=== PATIENT | male | born 1990 | race Caucasian/White ===

== ENCOUNTER 2017-06-02 14:14 | Emergency (ER) | payer BC ==
[2017-06-02 14:24] VITALS: BP 139/81
--- NOTE | 2017-06-02 14:51 | EDM.PDOC ---
ED HPI GENERAL MEDICAL PROBLEM - General Chief Complaint: Bite:Animal, Insect Stated Complaint: RIGHT LEG SWOLLEN Time Seen by Provider: 06/02/17 14:24 Source of Information: Reports: Patient History Limitations: Reports: No Limitations - History of Present Illness INITIAL COMMENTS - FREE TEXT/NARRATIVE: The patient presents with right inner thigh redness and swelling. He got stung by a bee yesterday and went to the clinic this morning. He was put on prednisone and benadryl. The redness has gotten worse. 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 He has no fever, chills or cough. Onset: Gradual Duration: Day(s): (Yesterday) Location: Reports: Lower Extremity, Right (Inner thigh) Quality: Reports: Sharp Severity: Moderate Improves with: Reports: None Worsens with: Reports: None Associated Symptoms: Reports: No Other Symptoms Right Knee Pain Score (Numeric/FACES): 6 - Related Data Allergies Allergy/AdvReac Type Severity Reaction Status Date / Time Penicillins Allergy Anaphylactic Verified 06/02/17 14:20 Shock Home Meds: Home Meds Cephalexin 250 mg PO BID 09/11/14 [History] Ondansetron [Zofran ODT] 4 mg PO Q6H PRN #10 tab.dis 12/07/15 [Rx] oxyCODONE HCl/Acetaminophen [Percocet 5-325 mg Tablet] 1 each PO Q6H PRN #10 tablet 12/07/15 [Rx] Sulfamethoxazole/Trimethoprim [Bactrim Ds Tablet] 1 each PO BID #20 tablet 06/02 [Rx] Past Medical History Gastrointestinal History: Reports: None Neurological History: Reports: Concussion 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 Hematologic History: Reports: Other (See Below) Other Hematologic History: Cárdenas syndrome - Past Surgical History GI Surgical History: Reports: Other (See Below) Other GI Surgeries/Procedures: splenectomy Musculoskeletal Surgical History: Reports: Other (See Below) Other Musculoskeletal Surgeries/Procedures:: left knee surgery Social & Family History - Family History Family Medical History: Noncontributory - Tobacco Use Smoking Status *Q: Current Every Day Smoker Years of Tobacco use: 6 Packs/Tins Daily: 1 - Caffeine Use Caffeine Use: Reports: Energy Drinks - Alcohol Use Days Per Week of Alcohol Use: 0 - Recreational Drug Use Recreational Drug Use: No ED ROS GENERAL - Review of Systems Review Of Systems: See Below Constitutional: Reports: No Symptoms HEENT: Reports: No Symptoms Respiratory: Reports: No Symptoms Cardiovascular: Reports: No Symptoms Endocrine: Reports: No Symptoms GI/Abdominal: Reports: No Symptoms : Reports: No Symptoms Musculoskeletal: Reports: Other (Redness and pain after a bee sting) ED EXAM, ANIMAL BITE - Physical Exam Exam: See Below Exam Limited By: No Limitations General Appearance: Alert, No Apparent Distress Ears: Normal External Exam Nose: Normal Inspection Head: Atraumatic, Normocephalic Neck: Normal Inspection Respiratory/Chest: No Respiratory Distress, Lungs Clear, Normal Breath Sounds Cardiovascular: Regular Rate, Rhythm, No Edema, No Murmur GI/Abdominal: Soft, Non-Tender, No Organomegaly, No Mass Back Exam: Normal Inspection Extremities: Other (Erythema and mild edema surrounding a puncture wound to the right inner thigh.) Course - Vital Signs Last Recorded V/S: Last Vital Signs Temp 98.7 F 06/02/17 14:20 Pulse 90 06/02/17 14:20 Resp 18 06/02/17 14:20 BP 139/81 06/02/17 14:20 Pulse Ox 97 06/02/17 14:20 - Re-Assessments/Exams Free Text/Narrative Re-Assessment/Exam: 06/02/17 14:54 I feel he has cellulitis. I will get him on some bactrim. Departure - Departure Time of Disposition: 15:00 Disposition: Home, Self-Care 01 Condition: Good Clinical Impression: Cellulitis Qualifiers: Site of cellulitis: extremity Site of cellulitis of extremity: lower extremity Laterality: right Qualified Code(s): L03.115 - Cellulitis of right lower limb - Discharge Information Prescriptions: Sulfamethoxazole/Trimethoprim [Bactrim Ds Tablet] 1 each PO BID #20 tablet Referrals: Chandrakant Carrillo MD [Primary Care Provider] - 1 Week (If not better) Forms: ED Department Discharge Additional Instructions: Take the keflex like you normally do and take bactrim 2 times per day for 10 days. Put warm compresses on your leg 2 to 3 times per day. There may be more redness for a day but within 48 to 72 hours it should start to look better. If it is not please return or see your doctor.
== END 2017-06-02 15:05 | disposition home or self-care (01) ==
LOC: JD.ED 14:14
DX: L03.115 Cellulitis of right lower limb (principal); F17.210 Nicotine dependence, cigarettes, uncomplicated; Z98.890 Other specified postprocedural states; Z90.81 Acquired absence of spleen; Z88.0 Allergy status to penicillin
CPT/HCPCS: 99283

== ENCOUNTER 2020-08-31 12:35 | Emergency (ER) | payer BC ==
[2020-08-31 12:46] VITALS: BP 140/109; PULSE 99
[2020-08-31] MEDS ORDERED: Sodium Chloride 0.9% 1,000 ML IV ONE (13:30)
--- NOTE | 2020-08-31 13:36 | EDM.PDOC ---
ED HPI GENERAL MEDICAL PROBLEM - General Chief Complaint: Behavioral/Psych Stated Complaint: [facility] Time Seen by Provider: 08/31/20 13:11 Source of Information: Reports: Patient, EMS Notes Reviewed, RN Notes Reviewed History Limitations: Reports: No Limitations - History of Present Illness INITIAL COMMENTS - FREE TEXT/NARRATIVE: Patient is a 30-year-old male who was brought into the ED via the [facility] for the evaluation of his anxiety attack. He notes that he tried a new medication, CBD oil, 2 hours prior to developing the severe anxiety, he states he felt like his heart was beating out of his chest, he felt very shaky and tingly, and he has never used this substance before. He does have a history of anxiety, and is on Lexapro and Viberzi for management. EKG was taken by ambulance staff, did show sinus tachycardia, when I go in to evaluate the patient, it is normal sinus rhythm at 86bpm on the vehicle monitor technician. Patient did get 2 mg of IV Ativan for the ambulance service prior to arrival to the ER. He is aware of person and place and time. He notes that the Ativan seemed to help his symptoms. He states that all of his symptoms were similar to his anxiety attacks in the past. He states he feels mildly short of breath, but is not having any fevers or chills or cough, no nausea/vomiting/diarrhea. 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 ED EXAM, GENERAL - Physical Exam Exam: See Below Exam Limited By: No Limitations General Appearance: Alert, WD/WN, No Apparent Distress (pt talks slow, and makes slow movements. It almost appears if he is acutely intoxicated by THC rather than CBD oil.) Eye Exam: Bilateral Eye: EOMI, Normal Inspection, PERRL (pupils dilated, but reactive to light) Respiratory/Chest: No Respiratory Distress, Lungs Clear, Normal Breath Sounds, No Accessory Muscle Use, Chest Non-Tender Cardiovascular: Normal Peripheral Pulses, Regular Rate, Rhythm, No Murmur Peripheral Pulses: 2+: Radial (L), Radial (R) Extremities: Normal Inspection, Normal Capillary Refill Neurological: Alert, Oriented, Normal Cognition, No Motor/Sensory Deficits Psychiatric: Normal Affect, Normal Mood Skin Exam: Warm, Dry, Intact, Normal Color, No Rash Course - Vital Signs Last Recorded V/S: Last Vital Signs Temp 98.5 F 08/31/20 12:43 Pulse 99 08/31/20 12:43 Resp 18 08/31/20 12:43 BP 140/109 H 08/31/20 12:43 Pulse Ox 95 08/31/20 12:43 - Orders/Labs/Meds Meds: Medications Discontinued Medications Generic Name Dose Route Start Last Admin Trade Name Josiah PRN Reason Stop Dose Admin Sodium Chloride 1,000 mls @ 999 mls/hr 08/31/20 13:30 08/31/20 14:05 Normal Saline IV 08/31/20 14:30 999 mls/hr ONETIME ONE Administration - Re-Assessments/Exams Free Text/Narrative Re-Assessment/Exam: 08/31/20 13:34 The patient presents to the ED for his severe anxiety. He did get 2 mg Ativan prior to coming to the ER, his actions in the room almost seem as if he is acutely intoxicated with cannabis rather than CBD oil. I did look at the package of pills that he took, and states that it was whole hemp plant and coconut oil, there was 8 mg of hemp plant. These do look to be homemade at home packaged, so I am not sure as to the validity of the ingredients or the list. I told him he should try not take the CBD pills anymore. We will give him some IV fluids and watch him in the ER for a little while, and hopefully get him discharged home with general recommendations. There are no acute worrisome signs appreciated on initial exam. 08/31/20 15:06 Patient was reassessed at bedside, after his fluids have almost been completed. He is still quite spaced out, but able to answer questions appropriately. We will call his to have her come pick him up, and observe him at home for the next few hours as I do believe the effect should wear off shortly. Departure - Departure Time of Disposition: 15:07 Disposition: Home, Self-Care 01 Condition: Good Clinical Impression: Anxiety, Cannabis intoxication delirium, acute, hypoactive - Discharge Information *PRESCRIPTION DRUG MONITORING PROGRAM REVIEWED*: No *COPY OF PRESCRIPTION DRUG MONITORING REPORT IN PATIENT CHAVEZ: No Instructions: Managing Anxiety, Adult Referrals: Chandrakant Carrillo MD [Primary Care Provider] - Forms: ED Department Discharge Additional Instructions: You were seen in this ER for your suspected anxiety attack. The ambulance did give you 2 mg Ativan in route to the hospital, this did seem to help relieve your symptoms of anxiety. It is likely that the CBD pills that you took, contained an active form of THC, rather than CBD, and you did appear acutely intoxicated from THC at the time of exam and while you were in the ER department. This will take a few hours to wear off, make sure you are getting plenty of oral fluids. You did receive an IV bag of fluids while you spend your time in the ER. I would recommend you dispose of the CBD pills, and no longer take them. Please return to the ER at any time if symptoms change or worsen. Sepsis Event Note (ED) - Evaluation Sepsis Screening Result: No Definite Risk - Focused Exam Vital Signs: Vital Signs Temp Pulse Resp BP Pulse Ox 08/31/20 12:43 98.5 F 99 18 140/109 H 95
== END 2020-08-31 15:15 | disposition home or self-care (01) ==
LOC: JD.ED 12:35
DX: F41.9 Anxiety disorder, unspecified (principal); F12.921 Cannabis use, unspecified with intoxication delirium; Z88.0 Allergy status to penicillin; Z91.030 Bee allergy status
CPT/HCPCS: 99285; J7030; 99283

== ENCOUNTER 2022-03-09 20:51 | Emergency (ER) | payer BC ==
[2022-03-09 21:20] VITALS: BP 152/98; PULSE 80
[2022-03-09] MEDS ORDERED: Sodium Chloride 0.9% 1,000 ML IV SCH (21:45)
[2022-03-09] MEDS ORDERED: Ondansetron 4 MG/2 ML SDV IVPUSH ONE (21:46)
[2022-03-09] MEDS ORDERED: Iopamidol 612 MG/ML 100 ML Bottle IVPUSH ONE (21:47)
[2022-03-09] MEDS ORDERED: Sodium Chloride 0.9% 10 ML Syringe FLUSH ONE (21:47)
[2022-03-09] MEDS ORDERED: Sodium Chloride 0.9% 100 ML IV SCH (22:00)
== END 2022-03-10 00:14 | disposition home or self-care (01) ==
LOC: JD.ED 20:51
DX: A08.4 Viral intestinal infection, unspecified (principal); Z88.0 Allergy status to penicillin; Z91.030 Bee allergy status
CPT/HCPCS: 36415; 74177; 80053; 81001; 85007; 85027; 86850; 86900; 86901; 96360; 96361; 99284; J3490; J7030; Q9967

== ENCOUNTER 2025-05-04 23:58 | Emergency (ER) | payer BC ==
[2025-05-05 00:20] VITALS: BP 152/97; PULSE 100
[2025-05-05 01:33] LABS: CORONAVIRUS COVID-19 NAA NEGATIVE (NEGATIVE); INFLUENZA A NAA NEGATIVE (NEGATIVE); RESPIRATORY SYNCYTIAL VIR NAA NEGATIVE (NEGATIVE)
[2025-05-05] MEDS ORDERED: Sodium Chloride 0.9% 10 ML Syringe FLUSH PRN (02:08)
[2025-05-05 02:20] LABS: BASOPHILS ABSOLUTE AUTO 0.1 K/mm3 (0.0-0.2); BASOPHILS PERCENT AUTO 1.0 % (0.0-1.0); EOSINOPHILS ABSOLUTE AUTO 0.3 K/mm3 (0.0-0.4); EOSINOPHILS PERCENT AUTO 3.3 % (0.0-6.0); IMMATURE GRAN ABSOLUTE AUTO 0.02 K/mm3 (0.00-0.05); IMMATURE GRAN PERCENT AUTO 0.3 % (0.0-0.4); LYMPHOCYTES ABSOLUTE AUTO 0.5 K/mm3 (1.0-4.8); LYMPHOCYTES PERCENT AUTO 6.2 % (24.0-44.0); MEAN PLATELET VOLUME 9.7 fl (9.4-12.4); MONOCYTES ABSOLUTE AUTO 0.6 K/mm3 (0.0-0.8); MONOCYTES PERCENT AUTO 7.9 % (0.0-8.0); NEUTROPHILS ABSOLUTE AUTO 6.4 K/mm3 (1.8-7.7); NEUTROPHILS PERCENT AUTO 81.3 % (41.0-71.0); NRBC ABSOLUTE 0.00 (0.00-0.02); NRBC PERCENT 0.0 % (0.0-0.2); PLATELET COUNT,PLT 353 K/mm3 (150-400); RED BLOOD CELL COUNT 5.76 M/mm3 (4.52-5.90); WHITE BLOOD CELL COUNT,WBC 7.86 K/mm3 (3.9-11.3)
[2025-05-05 02:25] LABS: A/G RATIO 0.8 (1-2); ALANINE AMINOTRANSFERASE,ALT 76.0 U/L (16-63); BILIRUBIN TOTAL 0.5 mg/dL (0.2-1.0); BLOOD UREA NITROGEN,BUN 11.0 mg/dL (7-18); CARBON DIOXIDE,CO2 27.0 mEq/L (21-32); CHLORIDE,CL 98.0 mEq/L (98-107); CREATININE 1.0 mg/dL (0.7-1.3); EST CRCL DRUG DOSING (CG) 109.5 mL/min; ESTIMATED GFR 103.0 mL/min (>60); GLUCOSE RANDOM 114.0 mg/dL (70-99); PROTEIN TOTAL,TP 7.9 g/dl (6.4-8.2); SODIUM,NA 134.0 mEq/L (136-145)
[2025-05-05 02:27] LABS: ETHANOL BLOOD MEDICAL 0.0 gm% (0.00)
[2025-05-05 02:28] LABS: ASPARTATE AMNIOTRANSFERASE,AST 44.0 U/L (15-37); POTASSIUM,K 4.1 mEq/L (3.5-5.1)
[2025-05-05 03:01] LABS: LACTIC ACID 0.8 mmol/L (0.4-2.0)
[2025-05-05 06:00] LABS: APPEARANCE,URINE CLEAR (Clear); GLUCOSE,URINE NEGATIVE (Negative); OCCULT BLOOD,URINE NEGATIVE (Negative)
[2025-05-05 06:22] LABS: BUPRENORPHINE SCREEN,URINE NEGATIVE (CUTOFF=10); METHADONE SCREEN, URINE NEGATIVE (CUT0FF=200); METHAMPHETAMINES SCREEN, URINE NEGATIVE (CUTOFF=500); OXYCODONE SCREEN,URINE NEGATIVE (CUT0FF=100); THC SCREEN,URINE 20 NG/ML NEGATIVE (CUTOFF=50)
[2025-05-05 06:23] LABS: EPITHELIAL CELLS,URINE 0-5 /hpf (0-5)
[2025-05-05 06:27] LABS: AMPHETAMINES SCREEN, URINE NEGATIVE (CUTOFF=500)
== END 2025-05-05 06:50 | disposition home or self-care (01) ==
LOC: JD.ED 23:58
DX: E86.0 Dehydration (principal); R50.9 Fever, unspecified; I10 Essential (primary) hypertension; F17.200 Nicotine dependence, unspecified, uncomplicated; Z86.16 Personal history of COVID-19; Z88.0 Allergy status to penicillin; Z91.030 Bee allergy status; Z79.899 Other long term (current) drug therapy; Z90.49 Acquired absence of other specified parts of digestive tract
CPT/HCPCS: 36415; 71045; 80053; 80306; 80307; 81001; 82550; 83605; 85025; 87040; 87637; 96360; 96361; 99284; J7030